=== PATIENT | female | born 1985 | race Caucasian/White ===

== ENCOUNTER 2017-02-13 20:30 | Inpatient (IN) | payer MEDICAID ==
[~2017-02-13] VITALS: Ht 182.9 cm; Wt 144.7 kg
[2017-02-13] MEDS ORDERED: LACTATED RINGER'S 1,000 ML IV SCH (20:47)
[2017-02-13] MEDS ORDERED: LACT. RINGERS/OXYTOCIN 20UNITS 1,000 ML IV SCH (20:47)
[2017-02-13] MEDS ORDERED: METHYLERGONOVINE MALEATE 0.2 MG/ML AMP IM PRN (21:00)
[2017-02-13] MEDS ORDERED: PHISODERM TOP SOLN 240ML BTL TOP PRN (21:00)
[2017-02-13] MEDS ORDERED: NALBUPHINE HCL 10 MG/1ml INJECTION IV PRN (21:00)
[2017-02-13] MEDS ORDERED: LIDOCAINE 1% HCL (LOCAL ANESTH.) INJ 20ML MDV IJ ONE (21:00)
[2017-02-13] MEDS ORDERED: WITCH HAZEL-GLYCERIN PAD TOP PRN (21:00)
[2017-02-13] MEDS ORDERED: DERMOPLAST 60ML BOTTLE TOP PRN (21:00)
[2017-02-13 21:32] LABS: Basophils # (auto) 0.1 uL; Basophils % (auto) 0.4 % (0.0-2.0); CONDITION Y; Eosinophils # (auto) 0.1 uL; Eosinophils % (auto) 0.5 % (0.0-7.0); Hematocrit 38.9 % (36.0-46.0); Lymphocytes # (auto) 2.1 uL; Lymphocytes % (auto) 17.7 % (10.0-50.0); Mean Corpuscular Hemoglobin 27.7 pg (28.0-32.0); Mean Corpuscular Hgb Conc. 33.4 g/dL (32.0-36.0); Mean Corpuscular Volume 82.8 fL (80.0-100.0); Mean Platelet Volume 7.8 fL (7.4-10.4); Monocytes # (auto) 0.9 uL; Monocytes % (auto) 7.7 % (0.0-12.0); Neutrophils # (auto) 8.7 uL; Neutrophils % (auto) 73.7 % (37.0-80.0); Platelet Count (auto) 316 10^3/uL (140-450); Red Cell Distribution Width 14.4 % (11.6-16.0); White Blood Cell 11.8 10^3/uL (4.4-10.8)
[2017-02-13 21:39] LABS: Albumin 2.9 g/dL (3.4-5.0); BUN/Creatinine Ratio 12.5; Calcium 8.2 mg/dL (8.5-10.1); Potassium 3.9 mmol/L (3.5-5.1)
[2017-02-13 21:42] LABS: Bilirubin, Total 0.4 mg/dL (0.2-1.0); Total Protein 7.4 g/dL (6.4-8.2)
[2017-02-13] MEDS ORDERED: OXYTOCIN 10UNIT/ML 1ML VIAL ONE (21:46)
[2017-02-13] MEDS ORDERED: LIDOCAINE 2%HCL (LOCAL ANESTH.) INJ 20ML MDV ONE (21:47)
[2017-02-13 21:51] LABS: INR 0.92 (0.9-1.15); Partial Thromboplastin Time 25.6 sec (22.64-33.71)
[2017-02-13] MEDS ORDERED: LACT. RINGERS/OXYTOCIN 20UNITS 500 ML IV ONE (22:33)
[2017-02-13] MEDS: IBUPROFEN 600 MG TAB PO PRN (22:46)
[2017-02-14] MEDS ORDERED: PREN-153 PO (02:42)
[2017-02-14 03:30] VITALS: BP 137/69
[2017-02-14] MEDS: IBUPROFEN 600 MG TAB PO PRN ×2 (03:34→15:10)
[2017-02-14 07:06] VITALS: BP 120/64
[2017-02-14 12:20] VITALS: BP 116/66
[2017-02-14 16:33] VITALS: BP 119/62
[2017-02-14 20:00] VITALS: BP 133/61
[2017-02-14 23:40] VITALS: BP 125/64
[2017-02-15 03:15] VITALS: BP 132/59
== END 2017-02-15 11:10 | disposition home or self-care (01) | DRG 560 ==
LOC: LDRP 20:30 → OBSVTOIN 20:30 → LDRP 23:43
PROVIDERS: ADMIT Obstetrics & Gynecology; ATTEND Obstetrics & Gynecology
PROC: 10907ZC Drainage of Amniotic Fluid, Therapeutic from Products of Conception, Via Natural or Artificial Opening (ICD-10-PCS; principal; 2017-02-13)
PROC: 10E0XZZ Delivery of Products of Conception, External Approach (ICD-10-PCS; 2017-02-13)
DX: O62.3 Precipitate labor (principal); O77.0 Labor and delivery complicated by meconium in amniotic fluid; Z37.0 Single live birth; Z3A.40 40 weeks gestation of pregnancy; Z90.49 Acquired absence of other specified parts of digestive tract; Z88.2 Allergy status to sulfonamides; O71.89 Other specified obstetric trauma
CPT/HCPCS: 36415; 59025; 59409; 80053; 85025; 85610; 85730; 86850; 86900; 86901; G0378

== ENCOUNTER 2019-05-20 18:30 | Emergency (ER) | payer SELFPAY ==
[~2019-05-20] VITALS: Ht 180.3 cm; Wt 140.6 kg
[~2019-05-20 18:30] MED LIST: PREN-153 PO
[2019-05-20 18:44] VITALS: BP 155/86
[2019-05-20] MEDS ORDERED: methylPREDNISolone SOD SUCC 125 MG/2 ML VL IM ONE (23:15)
[2019-05-20] MEDS ORDERED: KETOROLAC TROMETH 60MG/2ML VIAL IM ONE (23:15)
== END 2019-05-20 23:50 | disposition home or self-care (01) ==
LOC: ER 18:30
DX: S76.112A Strain of left quadriceps muscle, fascia and tendon, initial encounter (principal); Z88.2 Allergy status to sulfonamides; X58.XXXA Exposure to other specified factors, initial encounter; Y93.89 Activity, other specified; Y92.89 Other specified places as the place of occurrence of the external cause; Y99.8 Other external cause status
CPT/HCPCS: 96372; 99283; J1885; J2930